=== PATIENT | male | born 1995 | race American Indian/Alaskan Native ===

== ENCOUNTER 2024-12-23 18:37 | Emergency (ER) | payer MEDICAID, SELFPAY ==
[2024-12-23 18:43] VITALS: BP 155/84; PULSE 81; RESP 18; TEMP 37.6; O2SAT 95; BMI 25.7
--- NOTE | 2024-12-23 18:48 | XR_ITS ---
Examination: PA lateral chest 2 views Technique: Upright PA lateral chest 2 views Exam date and time: December 23, 2024 at 1904 hrs. Indications: Onset coughing today Findings: Normal heart size No pneumonia or pulmonary edema The osseous structures are intact Impression: No pneumonia identified
--- NOTE | 2024-12-23 18:49 | EDNOTE_ITS ---
Upper Respiratory Inf. RME/HPI General Chief Complaint: Flu Like Symptoms Stated Complaint: FEVER, COUGH, VOMITING X3 DAYS Time Seen by Provider: 12/23/24 18:44 Source: patient Arrival date/time: 12/23/24 18:37 29-year-old male no significant past medical history presents emergency depart ment complaining of fever, cough, sore throat, body aches, and 1 episode of vomiting. Patient reports onset of symptoms 3 days ago. Mode of arrival: ambulatory Limitations: no limitations Related Data Previous Rx's ?Medication ?Instructions ?Recorded ibuprofen 800 mg tablet 800 mg PO TID PRN pain #30 t abs 07/02/21 polymyxin B sulfate 10,000 1 drp ophthalmic (eye) Q3H #10 mL 09/02/21 unit-trimethoprim 1 mg/mL eye drops acetaminophen 500 mg capsule 500 mg PO Q6H PRN pain #3 0 caps 12/23/24 ibuprofen 600 mg tablet 600 mg PO Q8H PRN pain #20 t abs 12/23/24 Allergies Allergy/AdvReac Type Severity Reaction Status Date / Time honey Allergy Intermediate WELTS,SOME Verified 09/02/21 19:32 DIFF. BREATHING Review of Systems Review of Systems Systems Reviewed: All systems reviewed, normal except as documented Constitutional Constitutional: Reports system reviewed and no additional complaints, except as documented, Reports body ache(s), Denies chills and Reports fever(s) Eyes Eyes: Reports system reviewed and no additional complaints, except as documented and Denies change in vision ENT Ears, Nose, Mouth, and Throat: Reports system reviewed and no additional complaints, except as documented, Denies disequilibrium, Denies dizziness, Reports sore throat and Denies vertigo Cardiovascular Cardiovascular: Reports system reviewed and no additional complaints, except as documented, Denies chest pain and Denies dyspnea Respiratory Respiratory: Reports system reviewed and no additional complaints, except as documented, Denies chest congestion, Reports cough and Denies dyspnea Gastrointestinal Gastrointestinal: Reports system reviewed and no additional complaints, except as documented, Denies abdominal pain and Reports vomiting Musculoskeletal Musculoskeletal: Reports system reviewed and no additional complaints, except as documented, Denies abnormal gait and Denies arthralgias Integumentary/Breasts Skin/Breast: Reports system reviewed and no additional complaints, except as documented, Denies erythema, Denies rash and Denies wounds Neurologic Neurologic: Reports system reviewed and no additional complaints, except as documented, Denies abnormal gait, Denies disequilibrium, Denies dizziness and Denies vertigo Past Medical History Past Medical History CARDIAC: Negative Congestive Heart Failure RESPIRATORY: Negative Chronic Obstructive Pulmonary Disease (COPD) GENITOURINARY: Negative Renal Disease ENDOCRINE: Negative Diabetes Mellitus Type 1 or Diabetes Mellitus Type 2 Social History SMOKING STATUS: Current every day smoker ED Exam General Limitations: Present no limitations General appearance: Present alert and in no apparent distress Head Head exam: Present atraumatic Eye Eye exam: Present normal appearance, PERRL and EOMI ENT ENT exam: Present normal exam, normal oropharynx and mucous membranes moist Expanded ENT Exam Throat exam: Present tonsillar erythema; Absent tonsillomegaly, tonsillar exudate or muffled voice Neck Neck exam: Present normal inspection, full ROM and trachea midline Chest Chest inspection: Present normal inspection and symmetric chest wall rise Respiratory Respiratory exam: Present normal lung sounds bilaterally Cardiovascular Cardiovascular exam: Present regular rate, normal rhythm and normal heart sounds Abdominal Exam Abdominal exam: Present soft and normal bowel sounds Extremities Exam Extremities exam: Present normal inspection and full ROM Back Exam Back exam: Present normal inspection and full ROM Neurological Exam Neurological exam: Present alert, oriented X3 and CN II-XII intact Psychiatric Psychiatric exam: Present normal affect and normal mood Skin Skin exam: Present warm, dry, intact and normal color Course Quality Measures none Orders Category Date Time Status Bedside COVID-19 Antigen Test NOW Care 12/23/24 18:48 Active Bedside Influenza A&B Antigen Test NOW Care 12/23/24 18:48 Completed XR chest 2V Stat Exams 12/23/24 18:48 Completed Strep A Rapid Stat Lab 12/23/24 18:50 Completed Acetaminophen Tab [Tylenol ES Tab] Med 12/23/24 18:48 Discontinued 1,000 mg PO X1 ONE Ibuprofen Tab [Motrin Tab] Med 12/23/24 18:48 Discontinued 600 mg PO X1 ONE Ondansetron Odt [Zofran Odt] Med 12/23/24 18:51 Discontinued 4 mg PO X1 ONE Vital Signs Vital signs: Vital Signs Temperature 99.6 F 12/23/24 18:43 Pulse Rate 81 12/23/24 18:43 Respiratory Rate 18 12/23/24 18:43 Blood Pressure 155/84 H 12/23/24 18:43 Pulse Oximetry (%) 95 12/23/24 18:43 Oxygen Delivery Method Room Air 12/23/24 18:43 95% room air with normal limits Upper Respiratory Infection MDM Narrative MDM Narrative:: 29-year-old male no significant past medical history presents emergency department complaining of fever, cough, sore throat, body aches, and 1 episode of vomiting. Patient reports onset of symptoms 3 days ago. Chest x-ray was unremarkable for any pneumonic infiltrates. Patient appears nontoxic and is hemodynamically stable. Influenza positive. Strep swab negative. Patient stable for discharge. Onset of symptoms greater than 48 hours will not prescribe Tamiflu. Patient data External records reviewed:: [facility] previous records Clinical information provided by:: patient Social determinants that could affect healthcare access:: none Patient has the following chronic illnesses:: None How is presenting disease/condition affected by chronic disease/condition?: no chronic disease Evaluation data The following diagnostics were reviewed and interpreted by me:: lab results and radiology exam(s) Lab and/or radiology exams considered but not ordered:: Ordered Interpretation Summary: Interpreted by me Medications / Prescriptions Medications or Prescriptions considered but not ordered:: Ordered Medication administrations:: Medication Administration History Discontinued Medications Acetaminophen (Acetaminophen 500 Mg Tablet) 1,000 mg PO X1 ONE Stop: 12/23/24 18:49 Last Admin: 12/23/24 19:01 Dose: 1,000 mg Documented By: ABRAHAM Ibuprofen (Ibuprofen Tab 600 Mg Tablet) 600 mg PO X1 ONE Stop: 12/23/24 18:49 Last Admin: 12/23/24 19:02 Dose: 600 mg Documented By: ABRAHAM Ondansetron HCl (Ondansetron Odt 4 Mg Tabrap) 4 mg PO X1 ONE; Protocol Stop: 12/23/24 18:52 Last Admin: 12/23/24 19:20 Dose: 4 mg Documented By: ABRAHAM Given Consultations Consultation(s) initiated? (list below): No Diagnosis Upper Respiratory Differential Diagnosis: upper respiratory infection, otitis media, sinusitis, viral infection, bronchitis, influenza and pharyngitis Most likely diagnosis given after review of the tests above:: Influenza Admission Indicated Admission indicated?: not indicated Admission Request Was there a request for admission?: No Disposition Plan Disposition Plan: Discharge Discharge Attestation Discharge Attestation: The patient and all family members were given an opportunity to ask questions and understood the discharge instructions. Discharge instructions specifically effects, indications for sooner follow up or return to the emergency department, and the expected course of current diagnosis. Patient condition: Stable Discharge Plan Plan Patient Disposition: HOME (Self Care) Disposition Comment: Stable Prescriptions/Referrals Prescriptions/Med Rec: New ibuprofen 600 mg tablet 600 mg PO Q8H PRN (Reason: pain) Qty: 20 0RF acetaminophen 500 mg capsule 500 mg PO Q6H PRN (Reason: pain) Qty: 30 0RF No Action ibuprofen 800 mg tablet 800 mg PO TID PRN (Reason: pain) Qty: 30 0RF polymyxin B sulf-trimethoprim 10,000 unit- 1 mg/mL drops 1 drp ophthalmic (eye) Q3H Qty: 10 0RF Rx Instructions: while awake; do not exceed 6 doses in 24 hours Referrals: Michele Lopez PA-C [Primary Care Provider] - In 1 week Problem List Clinical Impression: Influenza Patient/Caregiver Discharge Instructions Discharge Activity: activity as tolerated Education Materials: ED Influenza (Adult) Additional Instructions: Drink plenty fluids and complaining of rest. Take Tylenol or ibuprofen as needed for fever or pain. Follow-up with primary care provider in 2 to 3 days. Return to emergency department for any worsening symptoms or as needed. Print Language: Nigerien Stand Alone Forms: Hayley Award Info., Patient Portal Info Letter PA/BRUNO Supervising Physician PA/BRUNO Supervising Physician: Dr. Rinaldi
[2024-12-23] MEDS: ACETAMINOPHEN 500 MG TABLET 1000 MG PO (19:01)
[2024-12-23] MEDS: IBUPROFEN TAB 600 MG TABLET PO (19:02)
[2024-12-23] MEDS: ONDANSETRON ODT 4 MG TABRAP PO (19:20)
[2024-12-23 20:14] LABS: Strep A Rapid Negative (Negative)
== END 2024-12-23 20:39 | disposition home or self-care (01) ==
PROVIDERS: Emergency Provider Emergency Medicine; PCP Physician Assistant
DX: J11.1 Influenza due to unidentified influenza virus with other respiratory manifestations (principal); F17.200 Nicotine dependence, unspecified, uncomplicated
CPT/HCPCS: 71046; 87400; 87651; 87811; 99283; Q0162; A9270